=== PATIENT | female | born 1975 | race Caucasian/White ===

== ENCOUNTER 2023-04-07 15:14 | Outpatient (CLI) | payer BC, SELFPAY ==
--- NOTE | ~2023-04-07 | MM_ITS ---
EXAMINATION: MM screening dianne BI w robin HISTORY: Screening TECHNIQUE: Craniocaudal and mediolateral oblique 3-D tomosynthesis images were obtained and synthetic 2-D images were generated. CAD analysis was submitted and interpreted. COMPARISON: No prior mammogram is available for comparison at this institution. BREAST PARENCHYMAL COMPOSITION: There are scattered areas of fibroglandular density. FINDINGS: There is no evidence of suspicious mass, calcification, or architectural distortion to sugg est malignancy in either breast. There has been no suspicious interval change. IMPRESSION: 1. No mammographic evidence of malignancy. 2. Recommend routine screening mammography in one year. BI-RADS Category 1: Negative Reviewed, dictated and finalized at location A. [facility]
== END 2023-04-07 15:15 | disposition home or self-care (01) ==
LOC: ANHIMG 15:16
PROVIDERS: PCP Plastic Surgery; Visit Provider Plastic Surgery
DX: Z12.31 Encounter for screening mammogram for malignant neoplasm of breast (principal)
CPT/HCPCS: 77063; 77067

== ENCOUNTER 2023-04-20 00:59 | Day surgery (SDC) | payer BC, SELFPAY ==
[2023-04-12 16:40] VITALS: BMI 47.8
--- NOTE | 2023-04-12 16:43 | PC.NURSE ---
Report to the Outpatient Waiting Room, entrance under the green pavilion located off [facility], at time 0730 on date ___[id number]____. Planned Procedure Time: ___30 . Time changes happen often and if your time is changed the preop area will call you the afternoon before. - You and your visitor will be asked to self-screen and do not enter if you have any COVID symptoms. - A mask is optional within the hospital at this time. Patients may have clear liquids (water, carbonated beverages, clear teas, apple juice) until EIGHT (PER DR. HUNTLEY ORDERS) hours prior to surgery. - No food or drink from midnight until time of surgery Take the following medications with a SIP of water the morning of surgery: __flexiril.___(PRN ONLY) DO NOT STOP ANY OF YOUR OTHER PRESCRIPTION MEDICATIONS PRIOR TO SURGERY ?EXCEPT THE FOLLOWING Medications to discontinue per physician do not take naltrexone morning of. CHECK WITH YOUR SURGEON FOR FURTHER INSTRUCTIONS OF MELOXICAM. STERIOD DOSE PACK SHOULD BE COMPLETED BY SURGERY DATE. *PLEASE NOTIFY DR. HUNTLEY YOU ARE TAKING STERIOD MED PACK FOR A CURRENT RASH.* Please no make-up, nail maltese, hairspray, perfume, deodorant, or body powder the day of surgery. No jewelry (including any body piercings) or valuables the day of surgery, leave them at home. Please take a shower or bath the night before, or the morning of, surgery with an antibacterial soap. Wear comfortable, loose fitting clothing. - Jewelry must be removed prior to entering the operating room. Rings and piercings that are not removed may be cut off. - The hospital will not accept responsibility for valuables. - Please leave all valuables, including medications, at home the day of surgery. If you are going home after surgery, a licensed auto parts delivery driver must drive you home. - NO public transportation without another adult if you receive anesthesia. - We recommend that an adult stay with you for 24 hours following discharge. - We also recommend that you do not drive, make important decision, drink alcoholic beverages, or take any drugs that were not prescribed by your health care provider for at least 24 hours after your discharge time. Follow any additional instructions given to you from your surgeon. If you or anyone in your household have experienced Covid symptoms in the past week, please notify your surgeon or the nurse liaison at the phone number below for possible testing. Telephone instructions given to __DIOGOAna (PATIENT) and asked if any additional questions and then verbalized understanding. Patient advised to call surgeon office or pre surgery nurse liaison [phone] if any additional questions.
--- NOTE | 2023-04-19 11:11 | P.PNAN_ITS ---
Anes - Initial Pre Proc Eval Procedure: Operation Date: 04/20/23 10:30 Proposed Procedures p Bilateral Breast Reduction - Damion Ferrell MD Date/Time: 04/19/23 11:11 Surgeon: Damion Ferrell MD Pre Op Diagnosis: breast hypertrophy Patient Data Age: 47 Gender: F Height: 1.63 m Weight: 126.5 kg Allergies Allergy/AdvReac Type Severity Reaction Status Date / Time No Known Allergies Allergy Verified 04/20/23 09:15 Home Medications Medication Instructions Recorded Confirmed Type cyclobenzaprine 10 mg tablet 10 mg PO BID PRN Pain 04/12/23 04/20/23 History meloxicam 15 mg tablet 15 mg PO DAILY PRN Pain 04/12/23 04/20/23 History naltrexone 4.5 mg capsule 4.5 mg PO DAILY 04/12/23 04/20/23 History cephalexin 500 mg capsule 500 mg PO Q8H #21 caps 04/20/23 Rx Patient hx anesthesia problems: post op nausea/vomiting Family hx anesthesia problems: none Results Review: All pre-operative results and documents have been reviewed as part of the pre- operative evaluation. [facility] Past Medical History Medical History (Updated 04/19/23 @ 11:12 by Luis Angel Tijerina DO) PONV (postoperative nausea and vomiting) Surgical History Surgical History (Updated 04/19/23 @ 11:12 by Luis Angel Tijerina DO) History of tubal ligation Family History Family History (Updated 09/04/15 @ 23:19 by DOCTOR UNKNOWN) Grandparent Family history of malignant neoplasm of cervix Other Family history of diabetes mellitus in first degree relative Social History Social History Smoking packs per day: 1 Smoking cigarettes per day: 20.0 Years smoked: 4 Smoking pack-years: 4.00 Smoking status: Former smoker Tobacco type: cigarettes Second hand tobacco smoke exposure: No Smoking end date: 02/06/93 Alcohol intake: current Drinks per week: 0 Alcohol use details: Rarely at holidays only Substance use: never Substance use type: does not use Last use: 2009 Living arrangements: with family Anes - Eval Final PreProcedure Day of Procedure 04/19/23 11:11 Patient weight: morbidly obese Heart: regular rate and rhythm Lungs: clear to auscultation Airway: Mallampati scale class III Neurological: alert and oriented Last oral intake: >/= 8 hours ASA classification: III Emergent: no Anesthetic plan: proceed Anesthesia type and monitoring: general ETT and standard monitoring Results Review: All pre-operative results and documents have been reviewed as part of the pre- operative evaluation. Informed Consent: The patient's anesthetic plan and its attendant risks and benefits were discussed with the patient/family/POA. Questions were solicited and answers provided to the satisfaction of the patient/family/POA.
[2023-04-20] VITALS (9 sets, daily range): BP systolic 119–156; BP diastolic 68–91; PULSE 79–90; RESP 16–20; TEMP 36.1–36.3; O2SAT 97–100
--- NOTE | 2023-04-20 07:09 | P.HPUP_ITS ---
History and Physical Update Update Date/Time: 04/20/23 07:09 Patient seen and examined in pre-operative holding area. No interval change in medical history or symptoms. Patient remembers previous discussion of benefits and alternatives to procedure. Continues to desire to proceed with bilateral breast reduction . I reviewed the risks including but not limited to bleeding ,infection, asymmetry, undesireable cosmetic appearance, partial/total skin/nipple loss, no change or worsening of symptoms, change in sensation. I discussed the possible use of assistants and their level of participation in the case. Patient stated understanding and signed the consent form wishing to p jose rafael
--- NOTE | 2023-04-20 07:09 | W.PM.PROC2 ---
Procedure Note - Detailed Date of Procedure 04/20/23 Pre-op Diagnosis breast hypertrophy Post-op Diagnosis Same Procedure Performed breast reduction bilateral Surgeon Damion Ferrell MD Vibrator Equipment Tester Pamela Winters PA-C Anesthesia General Description of Procedure Patient was seen in the preoperative holding area where the breasts were marked Jaime pattern fashion and consent form was signed. Patient was taken back to the operating room and placed on the table in the supine position. Time-out was performed with Anesthesia, surgeon, and staff agree on patient's name site surgery to be SCDs were placed on the lower extremities and inflated. Antibiotics were given. After general anesthesia was administered the breasts were prepped and draped in usual sterile fashion. I took my attention 1st to the right breast where I used a saline moistened lap pad and a Davin clamp. A breast tourniquet and then used a 38 mm nipple Sizer to circumscribe the nipple-areolar complex. I incised this with a 15 blade scalpel and proceeded with the de-epithelializing an 8 cm wide inferior pedicle. I made my other skin incisions with the scalpel. I elevated skin flaps with Bovie cautery and Gustavo's plane down to the level of the chest wall to expose the entire breast. I proceeded with resection of 741 g of breast tissue. I irrigated with normal saline and hemostasis with Bovie cautery. Plicated the pedicle with 2-0 Vicryl suture. I proceeded with closing the T junction with 2-0 Prolene suture. 3-0 Vicryl was used for dermis. The nipple was brought out 5-1/2 cm above the inframammary fold the most prominent portion of the breast of the breast midline and secured with 3-0 Vicryl suture. 4-0 Monocryl was used for subcuticular closure. The nipple appeared healthy with good cap refill. And I took my attention to the left breast where similar procedure was performed. Using a saline moistened lap pad and Davin clamp to create a breast tourniquet, 38 mm nipple Sizer, and de epithelializing an 8cm wide inferior pedicle. I made my other skin incisions through skin into the dermis. I elevated skin flaps in Gustavo's planed down to the chest wall to expose the breast. I proceeded with resection of 983 g of tissue from the left breast noting that this tissue was denser in nature and this gave a reasonable symmetry to the right breast. I irrigated with normal saline. Hemostasis with Bovie cautery. I plicated the pedicle with 2-0 Vicryl suture. The 2-0 Prolene was used for the T-junction. 3-0 Vicryl was used for dermis. The nipple was brought out 5-1/2 cm above the inframammary fold at the most prominent portion of the breast the breast midline and secured with 3-0 Vicryl suture as well. 4-0 Monocryl was used for subcuticular closure. Was reasonable size symmetry and position to the breasts. The nipples appeared viable with good cap refill. I injected 20 cc of 1% lidocaine with epinephrine and 0.5% Marcaine plain amongst the inframammary fold and anterior axillary line of each breast. A dressing of Mastisol Steri-Strips 4x4s ABDs and a breast binder was then applied. The patient was awakened from anesthesia and transferred to the recovery room in stable condition. Complications: None estimated blood loss: 75 cc disposition: Patient tolerated the procedure well and going later today. Pamela Winters PA-C was essential for positioining, retraction, resection, hemostasis, closure and dressing placement [facility] [place] Surgery - Charge Forward: Surgery Billing ([id number] same for pamela adding modifier )
[2023-04-20] MEDS: LACTATED RINGERS 1,000 ML 30 ML IV CONT ×2 (09:25→12:55)
[2023-04-20] MEDS: ceFAZolin 3 GM/D5W 100 ML 100 ML IVPB (10:25)
[2023-04-20] MEDS: LIDO 1%/EPINEPHRINE 1:100,000 50 ML VIAL 15 ML INFILTRATE (11:01)
--- NOTE | 2023-04-20 12:30 | SUR.OPER ---
Bilateral breast tissue specimen taken to pathology from OR by MARY Rollins and given to Roberta @ 3500.
[2023-04-20] MEDS: fentaNYL CITRATE INJ (*CRX) 100 MCG/2 ML VIAL 25 MCG IV PUSH ×3 (13:22→13:27)
[2023-04-20] MEDS: oxyCODONE HCL (*CRX) 5 MG TAB IR PO (14:09)
== END 2023-04-20 15:25 | disposition home or self-care (01) ==
PROVIDERS: PCP Physician Assistant; Visit Provider Plastic Surgery
PROC: 0HBV0ZZ Excision of Bilateral Breast, Open Approach (ICD-10-PCS; CPT 19318; principal; 2023-04-20 10:30)
DX: N62 Hypertrophy of breast (principal); Z87.891 Personal history of nicotine dependence; E66.01 Morbid (severe) obesity due to excess calories; Z68.42 Body mass index [BMI] 45.0-49.9, adult
CPT/HCPCS: 19318; 88305; A9270; J0690; J1100; J1170; J1200; J2250; J2405; J2704; J3010; J7120; L8000

== ENCOUNTER 2023-05-28 14:05 | Emergency (ER) | payer BC, SELFPAY ==
[2023-05-28 14:11] VITALS: BP 142/65; PULSE 100; RESP 18; TEMP 36.6; O2SAT 95
[2023-05-28 15:53] LABS: Basophils Percent Auto 0.5 % (0.2-1.2); Eosinophils Absolute Auto 0.1 K/mm3 (0-0.3); Eosinophils Percent Auto 1.7 % (0-4.4); Hematocrit 39.9 % (37.0-47.0); Hemoglobin 12.3 g/dL (12.0-15.0); Immature Granulocyte Absolute 0.01 K/mm3 (0.00-0.031); Immature Granulocyte Percent A 0.2 % (0-0.5); Lymphocytes Absolute Auto 2.06 K/mm3 (0.9-3.2); Mean Corpuscular HGB Conc 30.8 g/dl (32-36); Mean Corpuscular Hemoglobin 26.6 pg (26-34); Mean Corpuscular Volume 86.4 fl (80-100); Mean Platelet Volume 8.8 fl (7.4-10.4); Monocytes Absolute Auto 0.6 K/mm3 (0.1-0.6); Monocytes Percent Auto 8.6 % (2.6-8.5); Neutrophils Absolute Auto 3.9 K/mm3 (1.3-6.7); Platelet Count Result 333 k/mm3 (150-375); Red Blood Count 4.62 M/mm3 (4.2-5.4); Red Cell Distribution Width 13.6 % (11.5-14.5); White Blood Count 6.7 K/mm3 (4.5-10.0)
[2023-05-28 16:13] LABS: Alanine Aminotransferase 33 U/L (6-35); Albumin Level 4.5 g/dL (3.5-5.1); Alkaline Phosphatase 97 U/L (38-126); Anion Gap 7 mmol/L (4-12); Aspartate Amino Transferase 39 U/L (14-36); Bilirubin,Total 0.7 mg/dL (0.2-1.3); Blood Urea Nitrogen 18 mg/dL (7-17); CRP 2.2 mg/dL (<1.0); Calcium 9.8 mg/dL (8.4-10.2); Carbon Dioxide 26 mmol/L (22-30); Chloride 106 mmol/L (98-107); Estimated CRCL calculation 149 ml/min; Estimated Glomerular Filt Rate > 60; Glucose 103 mg/dL (65-110); Potassium 4.1 mmol/L (3.4-5.0); Sodium 139 mmol/L (137-145)
[2023-05-28] MEDS: CLINDAMYCIN HCL 150 MG CAP 450 MG PO (16:20)
[2023-05-28 16:47] VITALS: BP 172/90; PULSE 87; RESP 16; TEMP 36.9; O2SAT 98
[2023-05-28 16:58] LABS: Procalcitonin 0.1 ng/mL
--- NOTE | 2023-05-28 21:22 | ED.SKABFB ---
HPI - Skin/Abscess/Foreign Bdy General Chief complaint: Recheck/Abnormal Lab/Rx Stated complaint: post surgery bleeding Time Seen by Provider: 05/28/23 15:39 History of Present Illness HPI narrative: Patient presents here after she had a breast reduction several weeks ago, and yesterday was noting some tenderness and redness there and then at work today noticed that there was some leaking of fluid. She called her plastic surgeon who told her to be evaluated in the emergency room. No systemic symptoms. She did complete a course of antibiotics about 2 weeks ago Related Data Home Medications Medication Instructions Recorded Confirmed cyclobenzaprine 10 mg tablet 10 mg PO BID PRN Pain 04/12/23 04/20/23 meloxicam 15 mg tablet 15 mg PO DAILY PRN Pain 04/12/23 04/20/23 naltrexone 4.5 mg capsule 4.5 mg PO DAILY 04/12/23 04/20/23 Allergies Allergy/AdvReac Type Severity Reaction Status Date / Time No Known Allergies Allergy Verified 05/16/23 16:13 Review of Systems Review of Systems: All systems reviewed & are unremarkable except as noted in HPI and below PMFSH Past Medical History Medical History (Updated 05/28/23 @ 16:20 by Reyna Spencer MD) PONV (postoperative nausea and vomiting) Surgical History Surgical History (Updated 04/19/23 @ 11:12 by Luis Angel Tijerina DO) History of tubal ligation Family History Family History (Updated 09/04/15 @ 23:19 by DOCTOR UNKNOWN) Grandparent Family history of malignant neoplasm of cervix Other Family history of diabetes mellitus in first degree relative Social History Social History Smoking packs per day: 1 Smoking cigarettes per day: 20.0 Years smoked: 4 Smoking pack-years: 4.00 Smoking status: Former smoker Tobacco type: cigarettes Second hand tobacco smoke exposure: No Smoking end date: 02/06/93 Alcohol intake: current Drinks per week: 0 Alcohol use details: Rarely at holidays only Substance use: never Substance use type: does not use Last use: 2009 Living arrangements: with family Exam Narrative: EXAMINATION OF ORGAN SYSTEMS/BODY AREAS: Constitutional: Vital signs per nursing GENERAL:[No acute distress, non-toxic appearing.] HEAD: Normal with no signs of head trauma. EYES: EOMI, conjunctiva normal ENT: Hearing grossly intact LUNGS: Nonlabored breathing. HEART: [Regular rate and rhythm] ABD: [Soft], [nontender to palpation] EXT: Normal range of motion SKIN: indurated, erythematous lower left breast with some purulent drainage from incision site NEURO: [Alert and oriented x 3. No gross focal sensory or strength deficits.] PSYCH: Normal affect Course Vital Signs Vital signs: Vital Signs Temperature 97.9 F 05/28/23 14:11 Pulse Rate 100 05/28/23 14:11 Respiratory Rate 18 05/28/23 14:11 Blood Pressure 142/65 H 05/28/23 14:11 Pulse Oximetry 95 05/28/23 14:11 Temperature 98.4 F 05/28/23 16:47 Pulse Rate 87 05/28/23 16:47 Respiratory Rate 16 05/28/23 16:47 Blood Pressure 172/90 H 05/28/23 16:47 Pulse Oximetry 98 05/28/23 16:47 Procedures Abscess I/D other: Date of Incision: 05/28/23 Side (if applicable): left Technique: other (already open draining wound) Amount of fluid expressed (mL): 2 I&D Results: Pus MDM - Skin/Abscess/Foreign Bdy MDM Narrative Medical decision making narrative: patient presents for postop infection check she is well-appearing here with no systemic symptoms, on exam she does have some purulent drainage and indurated skin of her left lower breast that is concerning for abscess/ cellulitis. I did drain as much purulent discharges I could until there was just serosanguineous discharge left, and started on clindamycin. Discussed this with her plastic surgeon Dr. Ferrell who will see her in clinic on Monday. Stable for discharge at this time. Lab Data 05/28/23 15:48 05/28/23 15:48
== END 2023-05-28 16:48 | disposition home or self-care (01) ==
PROVIDERS: Emergency Provider Emergency Medicine; PCP Physician Assistant
DX: T81.41XA Infection following a procedure, superficial incisional surgical site, initial encounter (principal); Z87.891 Personal history of nicotine dependence; Y83.8 Other surgical procedures as the cause of abnormal reaction of the patient, or of later complication, without mention of misadventure at the time of the procedure
CPT/HCPCS: 36415; 80053; 84145; 85025; 86140; 99283; A9270

== ENCOUNTER 2023-09-20 01:17 | Day surgery (SDC) | payer BC, OTHER, SELFPAY ==
--- NOTE | 2023-09-14 09:14 | PC.NURSE ---
Report to the Outpatient Waiting Room, entrance under the green pavilion located off [facility], at time _0600_ on date _[id number]_. Planned Procedure Time: _0730_. Time changes happen often and if your time is changed the preop area will call you the afternoon before. - You and your visitor will be asked to self-screen and do not enter if you have any COVID symptoms. - A mask is optional within the hospital at this time. - No food or drink from midnight until time of surgery Take the following medications with a SIP of water the morning of surgery: ___None DO NOT STOP ANY OF YOUR OTHER PRESCRIPTION MEDICATIONS PRIOR TO SURGERY ?EXCEPT THE FOLLOWING Medications to discontinue per physician None____ Discussed Naltrexone with patient who says she takes this for her back. Says was not told to hold it with her previous surgery. Informed her it would decrease the effectiveness of the pain medications given to her during surgery. I have no instructions for her to hold it but was just educating the patient. Please no make-up, nail romansh, hairspray, perfume, deodorant, or body powder the day of surgery. No jewelry (including any body piercings) or valuables the day of surgery, leave them at home. Please take a shower or bath the night before, or the morning of, surgery with an antibacterial soap. Wear comfortable, loose fitting clothing. - Jewelry must be removed prior to entering the operating room. Rings and piercings that are not removed may be cut off. - The hospital will not accept responsibility for valuables. - Please leave all valuables, including medications, at home the day of surgery. If you are going home after surgery, a licensed class c truck driver must drive you home. - NO public transportation without another adult if you receive anesthesia. - We recommend that an adult stay with you for 24 hours following discharge. - We also recommend that you do not drive, make important decision, drink alcoholic beverages, or take any drugs that were not prescribed by your health care provider for at least 24 hours after your discharge time. Follow any additional instructions given to you from your surgeon. If you or anyone in your household have experienced Covid symptoms in the past week, please notify your surgeon or the nurse liaison at the phone number below for possible testing. Telephone instructions given to __Angie___and asked if any additional questions and then verbalized understanding. Patient advised to call surgeon office or pre surgery nurse liaison [phone] if any additional questions.
[2023-09-14 09:18] VITALS: BMI 43.0
--- NOTE | 2023-09-19 17:40 | P.PNAN_ITS ---
Anes - Eval Pre Procedure Procedure: Operation Date: 09/20/23 07:30 Proposed Procedures p Panniculectomy - Damion Ferrell MD Date/Time: 09/19/23 17:40 Pre Op Diagnosis: excess skin tissue, panniculitis Patient Data Age: 47 Gender: F Height: 1.63 m Weight: 113.6 kg Allergies Allergy/AdvReac Type Severity Reaction Status Date / Time No Known Allergies Allergy Verified 09/14/23 09:17 Home Medications Medication Instructions Recorded Confirmed Type naltrexone 4.5 mg capsule 4.5 mg PO DAILY 04/12/23 09/14/23 History Patient hx anesthesia problems: post op nausea/vomiting Family hx anesthesia problems: none Results Review: All pre-operative results and documents have been reviewed as part of the pre- operative evaluation. [facility] Past Medical History Medical History (Updated 09/19/23 @ 17:40 by Reina Jacinto CRNA) Arthritis Chronic pain Morbid obesity PONV (postoperative nausea and vomiting) Surgical History Surgical History (Updated 04/19/23 @ 11:12 by Luis Angel Tijerina DO) History of tubal ligation Family History Family History (Updated 09/04/15 @ 23:19 by DOCTOR UNKNOWN) Grandparent Family history of malignant neoplasm of cervix Other Family history of diabetes mellitus in first degree relative Social History Social History Smoking packs per day: 1 Smoking cigarettes per day: 20.0 Years smoked: 5 Smoking pack-years: 5.00 Smoking status: Former smoker Tobacco type: cigarettes Second hand tobacco smoke exposure: No Smoking end date: 09/13/09 Alcohol intake: current Drinks per week: 0 Alcohol use details: Rarely at holidays only Substance use: never Substance use type: does not use Last use: 2009 Living arrangements: with family Spiritual care concerns: No Exam Day of Procedure 09/19/23 17:40
[2023-09-20] VITALS (10 sets, daily range): BP systolic 101–155; BP diastolic 69–93; PULSE 85–96; RESP 16–20; TEMP 36.1–36.5; O2SAT 92–100
[2023-09-20] MEDS: LACTATED RINGERS 1,000 ML 30 ML IV CONT ×2 (06:35→09:02)
--- NOTE | 2023-09-20 06:47 | P.OP_ITS ---
Procedure Note - Detailed Date of Procedure 09/20/23 Pre-op Diagnosis excess skin tissue, panniculitis Post-op Diagnosis Same Procedure Performed panniculectomy Surgeon Damion Ferrell MD Transcript Clerk pamela jarquin pa-c Anesthesia General Description of Procedure Patient was seen in the pre-operative area where consent form was signed and abdomen marked. Patient was taken back to the operating room and placed on the table in supine position. Time out was performed with anesthesia, surgeon and staff agreeing on patient's name, site and surgery to be performed. SCDs were placed on the lower extremities and inflated. Antbiotics were given IV. After general anesthesia was administered the abdomen was prepped and draped in sterile fashion. I proceeded with making my lower incision with 10 blade scalpel 7cm above the vaginal introitus on upward stretch extending lateral to anterior superior iliac spines onto the flank and lateral hip area where the pannus fold began and was necessary to excise as part of the panniculectomy. This was done through skin and dermis. Bovie cautery was used to dissect down the the fascia and I elevated the pannus off of the fascia just below the umbilicus. I marked and evaluated the extend of resection for the pannus, marked this and made the superior incision with 10 blade scalpel through skin and dermis. Bovie cautery was used to complete pannus resection. I irrigated with normal saline and proceeded with placing two 10 flat YASEMIN drains and 3-0 nylon for drain stitch. Scarpas fascia was closed with 2-0 v-lock suture. dermis was then closed with 2-0 vicryl suture and 4-0 monocryl was used for subcuticular. I injected 30cc 1%lido with epi and 0.5%marcaine plain along the incision. A dressing of mastisol, steri-strip, 4x4, abds and abdominal binder was then applied. The patient was awaken from anesthesia and transferred to recovery in stable condition. Complications: none EBL: 30cc Disposition: patient tolerated well and will be discharged home later today Pamela Jarquin PA-C was essential for positioining, retraction, closure and dressing placement. [facility] Billing Surgery - Charge Forward: Surgery Billing ([id number] for pamela)
--- NOTE | 2023-09-20 06:47 | WPDHPUPDATE1 ---
History and Physical Update Update Date/Time: 09/20/23 06:47 Patient seen and examined in pre-operative holding area. No interval change in medical history or symptoms. Patient remembers previous discussion of benefits and alternatives to procedure. Continues to desire to proceed with infraumbilical panniculectomy. I reviewed the risks including but not limited to bleeding ,infection, seroma, asymmetry, undesireable cosmetic appearance, partial/total skin/umbilicus loss, no change or worsening of symptoms, change in sensation. I discussed the possible use of assistants and their level of participation in the case. Patient stated understanding and signed the consent form wishing to proceed
--- NOTE | 2023-09-20 07:08 | P.PNAN_ITS ---
Anes - Eval Final PreProcedure Day of Procedure 09/20/23 07:08 Patient weight: morbidly obese Heart: regular rate and rhythm Lungs: clear to auscultation and normal air movement Airway: Mallampati scale class II Neurological: alert and oriented Last oral intake: >/= 8 hours ASA classification: III Anesthesia type and monitoring: general LMA and standard monitoring Results Review: All pre-operative results and documents have been reviewed as part of the pre- operative evaluation. Informed Consent: The patient's anesthetic plan and its attendant risks and benefits were discussed with the patient/family/POA. Questions were solicited and answers provided to the satisfaction of the patient/family/POA.
--- NOTE | 2023-09-20 07:09 | WPDANESEPPF ---
Anes - Initial Pre Proc Eval Procedure: Operation Date: 09/20/23 07:30 Proposed Procedures p Panniculectomy - Damion Ferrell MD Date/Time: 09/20/23 07:09 Surgeon: Damion Ferrell MD Pre Op Diagnosis: excess skin tissue, panniculitis Patient Data Age: 47 Gender: F Height: 1.63 m Weight: 114 kg Last Vital Signs Temp 36.5 C 09/20/23 06:13 Pulse 96 09/20/23 06:13 Resp 20 09/20/23 06:13 BP 155/91 H 09/20/23 06:13 Pulse Ox 100 09/20/23 06:13 O2 Del Method Room Air 09/20/23 06:13 Allergies Allergy/AdvReac Type Severity Reaction Status Date / Time No Known Allergies Allergy Verified 09/20/23 06:10 Home Medications Medication Instructions Recorded Confirmed Type naltrexone 4.5 mg capsule 4.5 mg PO DAILY 04/12/23 09/20/23 History Patient hx anesthesia problems: post op nausea/vomiting Family hx anesthesia problems: none Results Review: All pre-operative results and documents have been reviewed as part of the pre-operative evaluation. [facility] Past Medical History Medical History Arthritis Chronic pain Morbid obesity PONV (postoperative nausea and vomiting) Surgical History Surgical History History of tubal ligation Family History Family History Grandparent Family history of malignant neoplasm of cervix Other Family history of diabetes mellitus in first degree relative Social History Social History Smoking packs per day: 1 Smoking cigarettes per day: 20.0 Years smoked: 5 Smoking pack-years: 5.00 Smoking status: Former smoker Tobacco type: cigarettes Second hand tobacco smoke exposure: No Smoking end date: 09/13/09 Alcohol intake: current Drinks per week: 0 Alcohol use details: Rarely at holidays only Substance use: never Substance use type: does not use Last use: 2009 Living arrangements: with family Spiritual care concerns: No Anes - Eval Final PreProcedure Day of Procedure 09/20/23 07:09 Patient weight: morbidly obese Heart: regular rate and rhythm Lungs: clear to auscultation and normal air movement Airway: Mallampati scale class II Neurological: alert and oriented Last oral intake: >/= 8 hours ASA classification: III Emergent: no Anesthetic plan: proceed Anesthesia type and monitoring: general LMA Results Review: All pre-operative results and documents have been reviewed as part of the pre-operative evaluation. Informed Consent: The patient's anesthetic plan and its attendant risks and benefits were discussed with the patient/family/POA. Questions were solicited and answers provided to the satisfaction of the patient/family/POA.
--- NOTE | 2023-09-20 07:23 | P.PNAN_ITS ---
Anes - Initial Pre Proc Eval Procedure: Operation Date: 09/20/23 07:30 Proposed Procedures p Panniculectomy - Damion Ferrell MD Date/Time: 09/20/23 07:23 Surgeon: Damion Ferrell MD Pre Op Diagnosis: excess skin tissue, panniculitis Patient Data Age: 47 Gender: F Height: 1.63 m Weight: 114 kg Last Vital Signs Temp 97.7 F 09/20/23 06:13 Pulse 96 09/20/23 06:13 Resp 20 09/20/23 06:13 BP 155/91 H 09/20/23 06:13 Pulse Ox 100 09/20/23 06:13 O2 Del Method Room Air 09/20/23 06:13 Allergies Allergy/AdvReac Type Severity Reaction Status Date / Time No Known Allergies Allergy Verified 09/20/23 06:10 Home Medications Medication Instructions Recorded Confirmed Type naltrexone 4.5 mg capsule 4.5 mg PO DAILY 04/12/23 09/20/23 History Patient hx anesthesia problems: post op nausea/vomiting Family hx anesthesia problems: none Results Review: All pre-operative results and documents have been reviewed as part of the pre- operative evaluation. COUNT INCLUDES THE [facility] Past Medical History Medical History Arthritis Chronic pain Morbid obesity PONV (postoperative nausea and vomiting) Surgical History Surgical History History of tubal ligation Family History Family History Grandparent Family history of malignant neoplasm of cervix Other Family history of diabetes mellitus in first degree relative Social History Social History Smoking packs per day: 1 Smoking cigarettes per day: 20.0 Years smoked: 5 Smoking pack-years: 5.00 Smoking status: Former smoker Tobacco type: cigarettes Second hand tobacco smoke exposure: No Smoking end date: 09/13/09 Alcohol intake: current Drinks per week: 0 Alcohol use details: Rarely at holidays only Substance use: never Substance use type: does not use Last use: 2009 Living arrangements: with family Spiritual care concerns: No Anes - Eval Final PreProcedure Day of Procedure 09/20/23 07:23 Patient weight: morbidly obese Heart: regular rate and rhythm Lungs: clear to auscultation Airway: Mallampati scale class II Neurological: alert and oriented Last oral intake: >/= 8 hours ASA classification: III Emergent: no Anesthetic plan: proceed Anesthesia type and monitoring: general ETT and standard monitoring Results Review: All pre-operative results and documents have been reviewed as part of the pre- operative evaluation. Informed Consent: The patient's anesthetic plan and its attendant risks and benefits were discussed with the patient/family/POA. Questions were solicited and answers provided to the satisfaction of the patient/family/POA.
[2023-09-20] MEDS: ceFAZolin 2 GM/D5W 50 ML 2 GM/50 ML BAG IVPB (07:30)
[2023-09-20] MEDS: LIDO 1%/EPINEPHRINE 1:100,000 50 ML VIAL 30 ML INFILTRATE (08:39)
[2023-09-20] MEDS: BUPivacaine HCL 0.5% 10 ML AMP 30 ML INFILTRATE (08:40)
[2023-09-20] MEDS: SCOPOLAMINE 1 MG PATCH 1 PATCH TRANSDERM (09:02)
== END 2023-09-20 11:35 | disposition home or self-care (01) ==
PROVIDERS: PCP Physician Assistant; Visit Provider Plastic Surgery
PROC: 0JB80ZZ Excision of Abdomen Subcutaneous Tissue and Fascia, Open Approach (ICD-10-PCS; CPT 15830; principal; 2023-09-20 07:30)
DX: M79.3 Panniculitis, unspecified (principal); L98.7 Excessive and redundant skin and subcutaneous tissue; E66.01 Morbid (severe) obesity due to excess calories; Z68.41 Body mass index [BMI] 40.0-44.9, adult; Z87.891 Personal history of nicotine dependence
CPT/HCPCS: 15830; 88305; A9270; J0171; J0330; J0690; J1100; J1170; J1200; J1596; J2250; J2371; J2405; J2704; J3010; J7120